=== PATIENT | female | born 1990 | race Caucasian/White ===

== ENCOUNTER 2018-07-16 19:31 | Emergency (ER) | payer SELFPAY | END 2018-07-16 20:02 | disposition home or self-care (01) | LOC: MADERS 19:31 | DX: K02.9 Dental caries, unspecified (principal); F41.9 Anxiety disorder, unspecified; F17.210 Nicotine dependence, cigarettes, uncomplicated | CPT/HCPCS: 99282 ==

== ENCOUNTER 2018-08-23 14:49 | Emergency (ER) | payer SELFPAY ==
[2018-08-23 15:19] LABS: Bilirubin Negative (Negative); Blood, Urine Small (Negative); Glucose, Urine (Dipstick) Negative (Negative); Leukocyte Small (Negative); Nitrite Negative (Negative); Protein, Urine (Dipstick) Trace mg/dL (Neg-Trace); Specific Gravity, Urine 1.025 (1.005-1.030); Urobilinogen 0.2 mg/dL (0.2-1.0); pH, Urine 5.5 (5.0-9.0)
[2018-08-23 15:23] LABS: Clarity Hazy (Clear)
[2018-08-23 15:24] LABS: Bacteria/HPF Rare-Few HPF (None Seen); Pregnancy Test - Urine (BHCG) Negative (Negative); Pregu Control Background? CLEAR/WHITE (CLR/WHITE); Pregu Control Bar Appear? YES (CONTROL BAR); RBC/HPF 0-3 HPF (0-3); Specific Gravity 1.025 (1.002-1.036); Sperm/HPF Rare HPF (None Seen); Yeast-All Forms Rare HPF (None Seen)
--- NOTE | 2018-08-23 15:35 | CT ---
CT ABDOMEN AND PELVIS NONCONTRAST: HISTORY: Flank pain. FINDINGS: Each renal collecting system, ureter, and the urinary bladder are decompressed without stone apparent . Lack of contrast limits evaluation for other abnormalities. Paucity of intraabdominal fat also limit s evaluation. NO evidence of bowel obstruction. No free air. IMPRESSION: No CT evidence of urinary tract obstruction or calcification. POS: [facility]
[2018-08-23] MEDS ORDERED: HYDROcodone/Acetaminophen 5/325 mg Tablet ONE (15:48)
[2018-08-23] MEDS ORDERED: Ketorolac Tromethamine 30 MG/ML VIAL ONE (15:48)
== END 2018-08-23 16:29 | disposition home or self-care (01) ==
LOC: MADERS 14:49
DX: M54.5 Low back pain (principal); F41.9 Anxiety disorder, unspecified; F17.210 Nicotine dependence, cigarettes, uncomplicated; Z87.442 Personal history of urinary calculi
CPT/HCPCS: 74176; 81003; 81015; 81025; 96372; J1885

== ENCOUNTER 2018-11-25 20:14 | Emergency (ER) | payer MEDICAID, SELFPAY ==
[2018-11-25 21:17] LABS: #Basophils 0.1 thou/uL (0.0-0.2); #Eosinphils 0.2 thou/uL (0.0-0.7); #Monocytes 0.6 thou/uL (0.11-0.59); #Neutrophils 6.7 thou/uL (1.40-6.50); %Eosinophils 1.7 % (0.0-10.0); %Lymphocytes 20.8 % (21.0-51.0); %Monocytes 5.9 % (0.0-10.0); %Neutrophils 70.6 % (42.0-75.0); Hemoglobin 12.9 g/dL (12.0-16.0); Mean Corpuscular HGB CONC 31.7 g/dL (32.0-36.0); Mean Corpuscular Hemoglobin 27.6 pg (27.0-31.0); Mean Platelet Volume 7.1 fL (7.4-10.4); Platelet Count 314 thou/uL (130-400); RBC Distribution Width 13.3 % (11.5-14.5); Red Blood Cell (RBC) Count 4.66 mill/uL (4.20-5.40); White Blood Cell (WBC) Count 9.5 thou/uL (4.8-10.8)
[2018-11-25 21:24] LABS: BHCG - Serum POSITIVE (NEGATIVE); Pregs Control Background? CLEAR/WHITE (CLR/WHITE); Pregs Control Bar Appear? YES (CONTROL BAR)
[2018-11-25 21:33] LABS: ALT (SGPT) 10 U/L (8-55); AST (SGOT) 12 U/L (5-34); Alkaline Phosphatase 49 U/L (40-150); Anion Gap 16 mmol/L (10-20); BUN (Urea Nitrogen) 11 mg/dL (7.0-18.7); CK (CPK) 82 U/L (29-168); Calc. Creatinine Clearance 0 mL/min (70-130); Calcium 9.9 mg/dL (7.8-10.44); Carbon Dioxide 22 mmol/L (22-29); Chloride 106 mmol/L (98-107); Estimated GFR-MDRD 90; Globulin 3.5 g/dL (2.4-3.5); Glucose 87 mg/dL (70-105); Potassium 3.9 mmol/L (3.5-5.1); Protein, Total 8.5 g/dL (6.0-8.3); Sodium 140 mmol/L (136-145)
[2018-11-25 21:44] LABS: Bilirubin, Total 0.3 mg/dL (0.2-1.2)
== END 2018-11-25 22:09 | disposition home or self-care (01) ==
LOC: MADERS 20:14
DX: O99.89 Other specified diseases and conditions complicating pregnancy, childbirth and the puerperium (principal); B36.0 Pityriasis versicolor; O99.341 Other mental disorders complicating pregnancy, first trimester; F41.9 Anxiety disorder, unspecified; O99.331 Smoking (tobacco) complicating pregnancy, first trimester; F17.210 Nicotine dependence, cigarettes, uncomplicated; Z3A.00 Weeks of gestation of pregnancy not specified; Z79.899 Other long term (current) drug therapy
CPT/HCPCS: 36415; 80053; 82550; 84703; 85025; 85652; 99284

== ENCOUNTER 2020-09-09 14:02 | Emergency (ER) | payer MEDICAID, SELFPAY | END 2020-09-09 14:27 | disposition home or self-care (01) | LOC: MADERS 14:02 | DX: M54.6 Pain in thoracic spine (principal); F41.9 Anxiety disorder, unspecified; F17.210 Nicotine dependence, cigarettes, uncomplicated | CPT/HCPCS: 99283 ==